=== PATIENT | female | born 1960 | race Caucasian/White ===

== ENCOUNTER → 2021-06-29 17:19 | Outpatient (CLI) | payer OTHER, SELFPAY ==
[2021-06-29 20:58] LABS: Alanine Aminotransferase 62 U/L (12-78); Albumin Level 4.5 g/dl (3.5-5.0); Albumin/Globulin Ratio 1.5 (1.1-1.8); Alkaline Phosphatase 105 U/L (38-126); Anion Gap 14.6 mEq/L (5-15); Aspartate Amino Transferase 61 U/L (14-36); Bilirubin,Total 0.6 mg/dl (0.2-1.3); Blood Urea Nitrogen 11 mg/dl (7-17); Calcium 9.7 mg/dl (8.4-10.2); Carbon Dioxide 27 mmol/L (22.0-30.0); Chloride 102 mmol/L (98-107); Chol/HDL Ratio 3.4 (1-3.5); Cholesterol 204 mg/dl (140-200); Estimated Glomerular Filt Rate 125 ml/min (>60); GFR (African American) 151 ML/MIN (>60); Glucose 191 mg/dl (74-100); HDL Cholesterol 60 mg/dl (40-60); Potassium 4.6 mmoL/L (3.5-5.1); Sodium 139 mmol/L (136-145); Total Protein,Serum 7.5 g/dl (6.3-8.2); Triglycerides 148 mg/dl (30-150); VLDL Cholesterol 30 mg/dL (0-40)
[2021-06-29 21:09] LABS: Direct LDL Cholesterol 110.43 mg/dL (100-129)
[2021-06-29 21:28] LABS: Thyroid Stimulating Hormone 2.46 uIU/mL (0.465-4.68)
[2021-07-01 07:23] LABS: Hepatitis C Antibody 0.1 s/co ratio (0.0-0.9)
[2021-07-01 08:23] LABS: Thyroid Peroxidase Antibodies <8 IU/mL (0-34)
[2021-07-01 13:16] LABS: Mitochondrial (M2) Antibody <20.0 Units (0.0-20.0)
[2021-07-01 14:12] LABS: Thyroglobulin Level <1.0 IU/mL (0.0-0.9)
[2021-07-01 15:17] LABS: Hepatitis Be Antibody Negative (Negative)
== END ==
PROVIDERS: Visit Provider Internal Medicine
DX: E03.9 Hypothyroidism, unspecified (principal); R74.8 Abnormal levels of other serum enzymes; R73.9 Hyperglycemia, unspecified
CPT/HCPCS: 80053; 80061; 83036; 84443; 86256; 86376; 86707; 86800; 87380

== ENCOUNTER → 2023-07-06 16:22 | Outpatient (CLI) | payer OTHER, SELFPAY ==
--- NOTE | 2023-07-06 16:30 | XR_ITS ---
PROCEDURE INFORMATION: Exam: XR Right Knee Exam date and time: 07/06/2023 4:31 PM Age: 63 years old Clinical indication: Pain; Knee; Right; Additional info: Knee pain TECHNIQUE: Imaging protocol: Radiologic exam of the right knee. Views: 3 views. COMPARISON: No relevant prior studies available. FINDINGS: Bones/joints: There is tricompartmental osteoarthritis of the knee with loss of joint space, subchondral sclerosis, and productive changes. The osseous structures are intact, with no signs of acute fracture, dislocation, or malalignment. Age-related degenerative changes are observed. There is no evidence of abnormal bone density or destructive lesions. There is slight lateral tibial translation. Soft tissues: The soft tissues appear within normal limits. IMPRESSION: At the time of imaging, the study shows no acute osseous abnormalities but does reveal signs of advanced age-related degenerative changes.
== END ==
PROVIDERS: PCP Internal Medicine; Visit Provider Orthopaedic Surgery
DX: M25.561 Pain in right knee (principal)
CPT/HCPCS: 73562

== ENCOUNTER 2023-09-27 13:22 | Outpatient (CLI) | payer MEDICARE, OTHER, SELFPAY ==
--- NOTE | 2023-09-27 13:27 | XR_ITS ---
FINAL REPORT CLINICAL HISTORY: knee pain FINDINGS: Left knee Three views were obtained. There is no acute fracture or dislocation. There are severe degenerative changes. Multiple loose bodies are identified, largest is present superior to the patella measuring 36 mm. IMPRESSION: Severe degenerative changes with multiple loose bodies. Reviewed, Interpreted and Dictated by Sebas Padron III, MD Transcribed by Heather Malcolm Authenticated and [facility]
== END 2023-09-27 23:59 ==
LOC: RAD 13:23
PROVIDERS: PCP Internal Medicine; Visit Provider Orthopaedic Surgery
DX: M25.562 Pain in left knee (principal)
CPT/HCPCS: 73562

== ENCOUNTER 2024-06-06 16:20 | Outpatient (CLI) | payer MEDICARE, OTHER, SELFPAY ==
[2024-06-06 16:47] LABS: Basophils # 0.1 K/mm3 (0-0.2); Basophils % 0.9 % (0.1-2.0); Eosinophils # 0.2 K/mm3 (0.0-0.4); Eosinophils % 2.9 % (0.1-12.0); Hematocrit 46.6 % (37.0-47.0); Hemoglobin 15.7 g/dL (12.2-16.2); Lymphocytes # 1.6 K/mm3 (0.7-4.5); Lymphocytes % 27.1 % (10-50); Mean Corpuscular HGB Conc 33.6 g/dL (31.8-35.4); Mean Corpuscular Hemoglobin 28.9 pg (27.0-31.2); Mean Corpuscular Volume 85.9 fl (81-99); Mean Platelet Volume 8.2 fl (7.4-10.4); Monocytes # 0.2 K/mm3 (0.1-1.0); Monocytes % 3.7 % (1.7-9.3); Neutrophils % 65.4 % (37.0-80.0); Platelet Count 208 K/mm3 (142-424); Red Blood Count 5.43 M/mm3 (4.20-5.40); Red Cell Distribution Width 13.4 % (11.5-17.5); White Blood Count 6.1 K/mm3 (4.8-10.8)
[2024-06-06 17:10] LABS: Albumin Level 4.6 g/dl (3.5-5.0); Chloride 101 mmol/L (98-107)
[2024-06-06 17:11] LABS: Potassium 4.4 mmoL/L (3.5-5.1); Sodium 134 mmol/L (136-145)
[2024-06-06 17:13] LABS: Alanine Aminotransferase 31 U/L (12-78); Albumin/Globulin Ratio 1.6 (1.1-1.8); Alkaline Phosphatase 121 U/L (38-126); Anion Gap 16.4 mEq/L (5-15); Aspartate Amino Transferase 30 U/L (14-36); Bilirubin,Total 0.8 mg/dl (0.2-1.3); Blood Urea Nitrogen 20 mg/dl (7-17); Carbon Dioxide 21 mmol/L (22.0-30.0); Estimated Glomerular Filt Rate 72 ml/min (>60); GFR (African American) 87 ML/MIN (>60); Globulin 2.9 g/dL (1.3-3.2); Total Protein,Serum 7.5 g/dl (6.3-8.2)
[2024-06-06 17:14] LABS: Calcium 9.9 mg/dl (8.4-10.2); Chol/HDL Ratio 3.6 (1-3.5); Cholesterol 237 mg/dl (140-200); Glucose 317 mg/dl (74-100); HDL Cholesterol 66 mg/dl (40-60); Triglycerides 216 mg/dl (30-150); VLDL Cholesterol 43 mg/dL (0-40)
[2024-06-06 17:25] LABS: Direct LDL Cholesterol 123.71 mg/dL (100-129)
[2024-06-06 17:44] LABS: Thyroid Stimulating Hormone 2.88 uIU/mL (0.465-4.68)
[2024-06-06 17:59] LABS: Hemoglobin A1C 12.1 % (4.0-6.0)
== END 2024-06-06 23:59 | disposition home or self-care (01) ==
LOC: LAB 16:21
PROVIDERS: PCP Internal Medicine; Visit Provider Internal Medicine
DX: E78.5 Hyperlipidemia, unspecified (principal); E11.9 Type 2 diabetes mellitus without complications; R79.89 Other specified abnormal findings of blood chemistry; R03.0 Elevated blood-pressure reading, without diagnosis of hypertension; R74.8 Abnormal levels of other serum enzymes
CPT/HCPCS: 36415; 80053; 80061; 83036; 84443; 85025